=== PATIENT | female | born 1970 | race Caucasian/White ===

== ENCOUNTER 2018-04-09 12:56 | Emergency (ER) | payer MEDICAID ==
[~2018-04-09 12:56] MED LIST: DIAZ10TA PO; HYDR-4353 PO; OMEP20TA23 PO
== END 2018-04-09 13:22 | disposition left against medical advice (07) ==
LOC: ER 12:56
DX: M54.9 Dorsalgia, unspecified (principal); Z53.21 Procedure and treatment not carried out due to patient leaving prior to being seen by health care provider

== ENCOUNTER 2021-08-23 09:03 | Day surgery (SDC) | payer MEDICAID ==
[~2021-08-23] VITALS: Ht 175.3 cm; Wt 74.0 kg
[2021-08-23] MEDS ORDERED: FERR-39 PO (09:19)
[2021-08-23] MEDS ORDERED: PANT-47 PO (09:19)
[2021-08-23] MEDS ORDERED: fentaNYL/PF 50MCG/1 ML 2ML syringe ONE (10:29)
[2021-08-23] MEDS ORDERED: MIDAZolam 1 MG/ML 5ML VIAL ONE (10:29)
[2021-08-23] MEDS ORDERED: LIDOcaine Viscous 15ml cup ONE (10:31)
[2021-08-23 10:44] VITALS: BP 178/90
[2021-08-23 11:20] VITALS: BP 116/79
[2021-08-23 11:30] VITALS: BP 123/67
[2021-08-23 11:40] VITALS: BP 148/90
[2021-08-23 11:50] VITALS: BP 141/86
== END 2021-08-23 12:00 | disposition home or self-care (01) ==
LOC: GI LAB 09:03
PROVIDERS: ATTEND Internal Medicine Gastroenterology
DX: D50.0 Iron deficiency anemia secondary to blood loss (chronic) (principal); K92.0 Hematemesis; K44.9 Diaphragmatic hernia without obstruction or gangrene; K31.89 Other diseases of stomach and duodenum; K29.70 Gastritis, unspecified, without bleeding; F17.210 Nicotine dependence, cigarettes, uncomplicated; I10 Essential (primary) hypertension; Z79.899 Other long term (current) drug therapy; Z88.5 Allergy status to narcotic agent
CPT/HCPCS: 43239; 99152; J2250; J3010; J7030; Z7512; A4620

== ENCOUNTER 2023-05-22 21:08 | Emergency (ER) | payer MEDICAID ==
[~2023-05-22] VITALS: Ht 175.3 cm; Wt 81.0 kg
[~2023-05-22 21:08] MED LIST changes: -DIAZ10TA PO; +FERR-39 PO; -HYDR-4353 PO; -OMEP20TA23 PO; +PANT-47 PO
[2023-05-22 21:15] VITALS: BP 139/75; PULSE 73; RESP 20; TEMP 98.3; O2SAT 98
== END 2023-05-22 22:59 | disposition left against medical advice (07) ==
LOC: ER 21:08
DX: H92.02 Otalgia, left ear (principal); Z20.822 Contact with and (suspected) exposure to COVID-19; Z53.21 Procedure and treatment not carried out due to patient leaving prior to being seen by health care provider
CPT/HCPCS: 36415; 87502; 87503; 87811; 99281